=== PATIENT | female | born 1975 | race Caucasian/White ===

== ENCOUNTER → 2023-07-05 07:27 | Outpatient (REF) | payer BC, SELFPAY ==
[2023-07-07 18:31] LABS: Quantiferon Mitogen minus NIL 8.82 IU/mL; Quantiferon NIL 0.05 IU/mL; Quantiferon TB Gold Plus Negative (Negative)
== END ==
LOC: SDSPAT 07:27
PROVIDERS: ATTENDING PHYSICIAN Nurse Practitioner Adult Health
DX: Z11.1 Encounter for screening for respiratory tuberculosis (principal)
CPT/HCPCS: 36415; 86480

== ENCOUNTER → 2023-07-06 16:43 | Outpatient (REF) | payer BC, SELFPAY | LOC: REG 16:43 | PROVIDERS: ATTENDING PHYSICIAN Nurse Practitioner Adult Health | DX: J02.9 Acute pharyngitis, unspecified (principal) | CPT/HCPCS: 87070 ==

== ENCOUNTER → 2023-09-05 08:09 | Outpatient (REF) | payer OTHER, SELFPAY | LOC: WDC 08:09 | PROVIDERS: ATTENDING PHYSICIAN Obstetrics & Gynecology Gynecology; FAMILY PHYSICIAN Nurse Practitioner Adult Health | DX: Z12.31 Encounter for screening mammogram for malignant neoplasm of breast (principal) | CPT/HCPCS: 77063; 77067 ==

== ENCOUNTER → 2024-09-05 06:34 | Outpatient (REF) | payer OTHER, SELFPAY | LOC: WDC 06:34 | PROVIDERS: ATTENDING PHYSICIAN Obstetrics & Gynecology Gynecology; FAMILY PHYSICIAN Nurse Practitioner Adult Health | DX: Z12.31 Encounter for screening mammogram for malignant neoplasm of breast (principal) | CPT/HCPCS: 77063; 77067 ==

== ENCOUNTER 2024-10-02 06:28 | Day surgery (SDC) | payer OTHER, SELFPAY | END 2024-10-02 11:48 | disposition home or self-care (01) | LOC: GI 06:28 | PROVIDERS: ATTENDING PHYSICIAN Internal Medicine | DX: Z12.11 Encounter for screening for malignant neoplasm of colon (principal); K64.8 Other hemorrhoids; K64.4 Residual hemorrhoidal skin tags; D12.2 Benign neoplasm of ascending colon; D12.5 Benign neoplasm of sigmoid colon; Z80.0 Family history of malignant neoplasm of digestive organs; Z86.0101 Personal history of adenomatous and serrated colon polyps | CPT/HCPCS: 45385; 88305 ==

== ENCOUNTER → 2024-12-10 06:37 | Outpatient (REF) | payer OTHER, SELFPAY | LOC: HWRAD 06:37 | PROVIDERS: ATTENDING PHYSICIAN Internal Medicine; FAMILY PHYSICIAN Nurse Practitioner Adult Health | DX: K76.0 Fatty (change of) liver, not elsewhere classified (principal) | CPT/HCPCS: 76700 ==

== ENCOUNTER 2025-04-16 06:28 | Day surgery (SDC) | payer OTHER, SELFPAY | END 2025-04-16 14:05 | disposition home or self-care (01) | LOC: GI 06:28 | PROVIDERS: ATTENDING PHYSICIAN Internal Medicine; FAMILY PHYSICIAN Nurse Practitioner Adult Health | DX: K74.60 Unspecified cirrhosis of liver (principal); D50.9 Iron deficiency anemia, unspecified; K44.9 Diaphragmatic hernia without obstruction or gangrene; K29.50 Unspecified chronic gastritis without bleeding | CPT/HCPCS: 43239; 88305; 88342 ==